=== PATIENT | male | born 1955 | race Caucasian/White ===

== ENCOUNTER 2021-09-08 21:00 | Emergency (ER) | payer MEDICAID ==
[~2021-09-08] VITALS: Ht 167.6 cm; Wt 69.0 kg
[2021-09-08] MEDS ORDERED: IBUPROFEN 600MG TABLET PO ONE (23:00)
[2021-09-08] MEDS ORDERED: BACITRACIN ZINC OINT UDPKT TOP ONE (23:00)
[2021-09-08] MEDS ORDERED: TETANUS, DIPHTHERIA, PERTUSSIS VAC/PF 0.5ML (>10YR OLD) IM ONE (23:00)
[2021-09-09] MEDS ORDERED: IBUP-2029 MT (00:24)
[2021-09-09] MEDS ORDERED: BO1 TP (00:24)
[2021-09-09 00:36] VITALS: BP 152/77
== END 2021-09-09 00:36 | disposition home or self-care (01) ==
LOC: ER 21:00
DX: S00.81XA Abrasion of other part of head, initial encounter (principal); W01.198A Fall on same level from slipping, tripping and stumbling with subsequent striking against other object, initial encounter; Y93.9 Activity, unspecified; Y92.9 Unspecified place or not applicable
CPT/HCPCS: 90471; 90715; 99284